=== PATIENT | male | born 1970 | race Caucasian/White ===

== ENCOUNTER 2017-07-15 12:50 | Emergency (ER) | payer BC, OTHER ==
[2017-07-15 12:54] VITALS: BMI 26.9
--- NOTE | 2017-07-15 14:24 | PDOC ---
History of Present Illness - General Chief Complaint: Nausea/Vomiting Stated Complaint: VOMITNG Time Seen by Provider: 07/15/17 14:24 - History of Present Illness Initial Comments: 07/15/17 14:24 Mr. Berg is a 46 yo male with a significant past medical history of IDDM and CAD who presents to the emergency department with a 10 hour history of hourly nausea and vomiting. He reports that he ate meat for the first time in 2 weeks last night at a neighbor's house (beef stew) and thinks this may have been the cause. He is also reporting a current migraine, and says that he has had 4 bowel movements today but that they have been regular stool. The patient denies chest pain, shortness of breath, and dizziness. Denies fever , chills, diarrhea and constipation. Denies dysuria, frequency, urgency and hematuria. Allergies: NKDA Past surgical history: knee and arm surgery Social history: denies PMD - Dr. Rose Past History - Past Medical History Allergies/Adverse Reactions: Allergies Allergy/AdvReac Type Severity Reaction Status Date / Time No Known Drug Allergies Allergy Verified 07/15/17 12:54 Home Medications: Ambulatory Orders Insulin (Novolog) [Novolog Flexpen -] 0 units SQ UTDICT 06/08/13 Insulin (Levemir) [Levemir Flexpen -] 70 units SQ HS 03/13/15 Aspirin Coated [Ecotrin -] 81 mg PO DAILY #30 tablet.ec 03/15/15 Atorvastatin Ca [Lipitor] 20 mg PO HS 03/11/16 Enalapril Maleate [Vasotec -] 2.5 mg PO DAILY 03/11/16 Metformin HCl [Metformin HCl ER] 500 mg PO BID 03/11/16 Sitagliptin Phosphate [Januvia] 50 mg PO DAILY 03/11/16 Oxycodone HCl/Acetaminophen [Percocet 5-325 mg Tablet] 1 - 2 tab PO PRN #50 tablet MDD 8 03/12/16 Ondansetron HCl [Zofran] 4 mg PO PRN #20 tablet 07/15/17 Tramadol HCl/Acetaminophen [Tramadol-Acetaminophn 37.5-325] 1 each PO Q6H Anemia: No Asthma: No Cancer: No Cardiac Disorders: Yes (CAD) CVA: No COPD: No CHF: No Dementia: No Diabetes: Yes GI Disorders: No Disorders: No HTN: No Hypercholesterolemia: No Liver Disease: No Seizures: No Thyroid Disease: No - Surgical History Abdominal Surgery: No Appendectomy: No Cardiac Surgery: No Cholecystectomy: No Lung Surgery: No Neurologic Surgery: No Orthopedic Surgery: Yes (L. Elbow, L. Miniscus tear) - Immunization History Td Vaccination: Yes Immunization Up to Date: Yes - Suicide/Smoking/Psychosocial Hx Smoking Status: No Smoking History: Never smoked Years of Tobacco Use: 0 Have you smoked in the past 12 months: No Number of Cigarettes Smoked Daily: 0 Cigars Per Day: 0 Hx Alcohol Use: Yes (SOCVIL) Drug/Substance Use Hx: No Substance Use Type: None Hx Substance Use Treatment: No Review of Systems - Review of Systems Comments:: 07/15/17 14:24 GENERAL/CONSTITUTIONAL: No fever or chills. No weakness. HEAD, EYES, EARS, NOSE AND THROAT: No change in vision. No ear pain or discharge. No sore throat. CARDIOVASCULAR: No chest pain or shortness of breath RESPIRATORY: No cough, wheezing, or hemoptysis. GASTROINTESTINAL: +Many episodes of nausea with vomiting, No diarrhea or constipation but multiple normal stools (4x) GENITOURINARY: No dysuria, frequency, or change in urination. MUSCULOSKELETAL: No joint or muscle swelling or pain. No neck or back pain. SKIN: No rash NEUROLOGIC: +Current migraine, no vertigo, loss of consciousness, or change in strength/sensation. ENDOCRINE: No increased thirst. No abnormal weight change HEMATOLOGIC/LYMPHATIC: No anemia, easy bleeding, or history of blood clots. ALLERGIC/IMMUNOLOGIC: No hives or skin allergy. *Physical Exam - Vital Signs Last Vital Signs Temp Pulse Resp BP Pulse Ox 99.4 F 102 H 20 133/71 97 07/15/17 12:51 07/15/17 12:51 07/15/17 12:51 07/15/17 12:51 07/15/17 12:51 - Physical Exam Comments: 07/15/17 14:24 GENERAL: Awake, alert, and fully oriented, in no acute distress HEAD: No signs of trauma, normocephalic, atraumatic EYES: PERRLA, EOMI, sclera anicteric, conjunctiva clear ENT: Auricles normal inspection, hearing grossly normal, nares patent, oropharynx clear without exudates. Moist mucosa NECK: Normal ROM, supple, no lymphadenopathy, JVD, or masses LUNGS: No distress, speaks full sentences, clear to auscultation bilaterally HEART: Regular rate and rhythm, normal S1 and S2, no murmurs, rubs or gallops, peripheral pulses normal and equal bilaterally. ABDOMEN: +Diffusely mildly tender to palpation, Soft, normoactive bowel sounds. No guarding, no rebound. No masses EXTREMITIES: Normal inspection, Normal range of motion, no edema. No clubbing or cyanosis. NEUROLOGICAL: Cranial nerves II through XII grossly intact. Normal speech, normal gait, no focal sensorimotor deficits SKIN: Warm, Dry, normal turgor, no rashes or lesions noted. ED Treatment Course - LABORATORY CBC & Chemistry Diagram: 07/15/17 14:55 07/15/17 14:55 Medical Decision Making - Medical Decision Making 07/15/17 18:13 Mr. Berg presents with several hours of vomiting with increased bowel movements. WBC slightly elevated but labs grossly normal. No elevated troponin or grossly elevated glucose, lipase / lactate wnl. Laboratory Results - last 24 hr 07/15/17 07/15/17 07/15/17 14:55 14:55 15:00 WBC 10.6 H D RBC 5.17 Hgb 15.1 D Hct 44.6 MCV 86.4 MCH 29.3 MCHC 33.9 RDW 13.0 Plt Count 187 MPV 8.9 Neutrophils % 86.7 H D Lymphocytes % 7.6 L D Monocytes % 4.5 Eosinophils % 0.9 D Basophils % 0.3 Sodium 135 L Potassium 4.2 Chloride 101 Carbon Dioxide 27 Anion Gap 7 L BUN 20 H D Creatinine 0.9 D Creat Clearance w eGFR > 60 Random Glucose 127 H D Lactic Acid 1.2 Calcium 8.8 Total Bilirubin 0.5 D AST 23 D ALT 37 D Alkaline Phosphatase 64 D Troponin I Total Protein 7.5 D Albumin 4.2 D Lipase 86 07/15/17 17:07 WBC RBC Hgb Hct MCV MCH MCHC RDW Plt Count MPV Neutrophils % Lymphocytes % Monocytes % Eosinophils % Basophils % Sodium Potassium Chloride Carbon Dioxide Anion Gap BUN Creatinine Creat Clearance w eGFR Random Glucose Lactic Acid Calcium Total Bilirubin AST ALT Alkaline Phosphatase Troponin I < 0.02 Total Protein Albumin Lipase *DC/Admit/Observation/Transfer Diagnosis at time of Disposition: Vomiting Qualifiers: Vomiting type: unspecified Vomiting Intractability: non-intractable Nausea presence: with nausea Qualified Code(s): R11.2 - Nausea with vomiting, unspecified; R11.2 - Nausea with vomiting, unspecified - Discharge Dispostion Disposition: HOME - Patient Instructions Printed Discharge Instructions: DI for Vomiting -- Adult
[2017-07-15] MEDS ORDERED: ONDANSETRON 4 MG/2 ML VIAL IVPUSH ONE (14:37)
[2017-07-15] MEDS ORDERED: SODIUM CHLORIDE 1,000 ML IV STA (14:37)
[2017-07-15] MEDS ORDERED: ONDANSETRON 4 MG/2 ML VIAL ONE (14:44)
--- NOTE | 2017-07-15 14:58 | PDOC ---
Attending Attestation - Resident Resident Name: [place] - ED Attending Attestation I have performed the following: I have examined & evaluated the patient, The case was reviewed & discussed with the resident, I agree w/resident's findings & plan, Exceptions are as noted - HPI HPI: 07/15/17 14:53 46yo M hx IDDM, CAD p/w vomiting since this AM, NBNB yellow in color approx 10 times today. Also reports diffuse abd pain. No fevers, chills. Ate beef stew last night but others who at the same food are not sick. Reports his FS have been under control. FS here 128. Denies focal weakness, headache, CP, SOB, dysuria, LE edema. Denies sick contacts - Physicial Exam PE: 07/15/17 15:25 GENERAL: Awake, alert, and fully oriented, in no acute distress HEAD: No signs of trauma EYES: PERRLA, EOMI, sclera anicteric, conjunctiva clear ENT: Auricles normal inspection, hearing grossly normal, nares patent, oropharynx clear without exudates. slight dry MM NECK: Normal ROM, supple, no lymphadenopathy, JVD, or masses LUNGS: Breath sounds equal, clear to auscultation bilaterally. No wheezes, and no crackles HEART: Regular rate and rhythm, normal S1 and S2, no murmurs, rubs or gallops ABDOMEN: Soft, mild tenderness to deep palpation of epigastric area, normoactive bowel sounds. No guarding, no rebound. No masses EXTREMITIES: Normal range of motion, no edema. No clubbing or cyanosis. No cords, erythema, or tenderness NEUROLOGICAL: Normal speech, cranial nerves intact, negative pronator drift, 5/ 5 strength in all 4 extremities, normal sensation to light touch in all 4 extremities, normal cerebellar exam, normal gait, normal reflexes and tone SKIN: Warm, Dry, normal turgor, no rashes or lesions noted. - Medical Decision Making 07/15/17 15:26 46-year-old male history of insulin-dependent diabetes, non obstructive CAD presents with vomiting since this morning. Vitals unremarkable. Exam with mild tenderness to palpation in the epigastric area. Fingerstick is 128. Differential includes but is not limited to gastroenteritis versus pancreatitis versus gastritis. Given hx non-obstructive CAD, will check a trop (sxs started 9 +hrs ago) and EKG. Plan -labs -UA -EKG -antiemetics -rpt abd exam -reassess 07/15/17 17:36 EKG: NSR, normal axis and intervals, TWI III and avf, with no change compared to EKG from 03/14/15 Trop is pending, remainder of labs unremarkable. pt feels better with IVF. Will PO challenge and f/u on trop.
[2017-07-15 14:59] LABS: BASOPHIL 0.3 % (0-2.0); EOSINOPHIL 0.9 % (0-4.5); MCH 29.3 pg (25.7-33.7); MCHC 33.9 g/dl (32.0-35.9); MEAN CELL VOLUME 86.4 fl (80-96); MEAN PLT VOLUME 8.9 fl (7.5-11.1); NEUTROPHILS 86.7 % (42.8-82.8); PLATELET COUNT 187 K/MM3 (134-434); WHITE BLOOD COUNT 10.6 K/mm3 (4.0-10.0)
[2017-07-15] MEDS ORDERED: ACETAMINOPHEN 1000 MG/100 ML VIAL (NON FORMULARY) IVPB ONE (15:13)
[2017-07-15] MEDS ORDERED: ACETAMINOPHEN INJECTION 100 ML IVPB ONE (15:16)
[2017-07-15 15:31] LABS: ALBUMIN 4.2 g/dl (3.4-5.0); ALK PHOS 64 U/L (45-117); ANION GAP 7 (8-16); BILIRUBIN,TOTAL 0.5 mg/dL (0.2-1.0); CALCIUM 8.8 mg/dL (8.5-10.1); CO2 27 mmol/L (21-32); CREATININE 0.9 mg/dL (0.7-1.3); GLUCOSE,RANDOM 127 mg/dL (74-106); SGOT/AST 23 U/L (15-37); SGPT/ALT 37 U/L (12-78); TOT PROT 7.5 g/dl (6.4-8.2)
[2017-07-15 18:33] VITALS: BP 131/68; PULSE 95; TEMP 97.6
--- NOTE | 2017-07-16 14:17 | EKG ---
Test Reason : Blood Pressure : / mmHG Vent. Rate : 094 BPM Atrial Rate : 094 BPM P-R Int : 142 ms QRS Dur : 082 ms QT Int : 326 ms P-R-T Axes : 049 018 -09 degrees QTc Int : 407 ms NORMAL SINUS RHYTHM NORMAL ECG WHEN COMPARED WITH ECG OF 14-MAR-2015 14:00, NO SIGNIFICANT CHANGE WAS FOUND Confirmed by DARVIN GLASER MD ([id number]) on 07/16/2017 2:17:19 PM Referred By: Confirmed By:DARVIN GLASER MD
== END 2017-07-15 18:33 | disposition home or self-care (01) ==
LOC: JER 12:50
PROC: 3E033NZ Introduction of Analgesics, Hypnotics, Sedatives into Peripheral Vein, Percutaneous Approach (ICD-10-PCS; principal; 2017-07-15)
PROC: 3E033GC Introduction of Other Therapeutic Substance into Peripheral Vein, Percutaneous Approach (ICD-10-PCS; 2017-07-15)
DX: R11.2 Nausea with vomiting, unspecified (principal); G43.909 Migraine, unspecified, not intractable, without status migrainosus
CPT/HCPCS: 36415; 80053; 83605; 83690; 84484; 85025; 93005; 93010; 99283-25

== ENCOUNTER 2018-12-31 05:23 | Day surgery (SDC) | payer BC, OTHER ==
[2018-12-30 12:36] VITALS: BMI 27.4
[2018-12-31] MEDS ORDERED: MIDAZOLAM HCL 2 MG/2 ML SINGLE DOSE VIAL ONE ×2 (08:05)
--- NOTE | 2018-12-31 08:16 | HP ---
Satellite H - Chief Complaint Chief Complaint: right shoulder pain - Past Medical History Allergies/Adverse Reactions: Allergies Allergy/AdvReac Type Severity Reaction Status Date / Time No Known Drug Allergies Allergy Verified 12/31/18 07:41 Cardiovascular: Yes: Hyperlipdemia Endocrine: Yes: Diabetes Mellitus - Current Medications Current Medications: Home Medications Medication Instructions Recorded Insulin (Novolog) [Novolog Flexpen 0 units SQ UTDICT 06/08/13 -] Insulin (Levemir) [Levemir Flexpen 70 units SQ HS 03/13/15 -] Atorvastatin Ca [Lipitor] 20 mg PO HS 03/11/16 Enalapril Maleate [Vasotec -] 2.5 mg PO DAILY 03/11/16 Sitagliptin Phosphate [Januvia] 50 mg PO DAILY 03/11/16 metFORMIN HCL [Metformin ER 500 mg PO BID 03/11/16 Osmotic] Insulin Pump Controller [Omnipod 1 each MC ASDIR 12/30/18 Dash Pdm Kit] Oxycodone HCl/Acetaminophen 1 - 2 tab PO Q6H #50 tab MDD 8 12/31/18 [Percocet 5-325 mg Tablet -] Satellite Physical Exam - Physical Examination Vital Signs: Vital Signs Period Temp Pulse Resp BP Sys/Bernal Pulse Ox Last 24 Hr 98.6 F 68 20 122/71 96 General Appearance: Well Nourished, Well Developed, Alert & Oriented x3 ENT: Clear Lung: Normal air movement Heart: Regular rate & rhythm Extremities: Other (right shoulder- + ttp, decr rom, + neer, + chen, + empty can, nvi MRI + rct) Neurological: Intact, Alert, Oriented Satellite Impression/Plan - Impression/Plan Impression: right shoulder rct Operative Procedure: right shoulder arthroscopy with RCR, SAD Date to be Performed: 12/31/18
[2018-12-31] MEDS ORDERED: PROPOFOL 20 ML ONE ×3 (08:43→09:41)
[2018-12-31] MEDS ORDERED: ceFAZolin SODIUM 1 GM VIAL IVPB ONE (08:56)
[2018-12-31] MEDS ORDERED: oxyCODONE HCL 5 MG TABLET PO PRN (09:04)
[2018-12-31] MEDS ORDERED: ONDANSETRON 4 MG/2 ML VIAL IVPUSH PRN (09:04)
[2018-12-31] MEDS ORDERED: LIDOCAINE HCL/PF 2% SDV 5ML VIAL ONE (09:13)
[2018-12-31] MEDS ORDERED: LACTATED RINGERS SOLUTION 1,000 ML IV SCH (09:15)
--- NOTE | 2018-12-31 09:52 | OP ---
Operative Note - Note: Operative Date: 12/31/18 ([facility]) Pre-Operative Diagnosis: right shoulder rct Operation: right shoulder arthroscopy with RCR, SAD Implants: arthrex speedbridge Post-Operative Diagnosis: Same as Pre-op Surgeon: Rik Albarran Insulation Worker: Buddy Dailey Anesthesiologist/BULLDOZER/LOADER/COMPACTOR/SCRAPER: Darin Weinberg Anesthesia: Local, MAC Specimens Removed: shavings Estimated Blood Loss (mls): 10 Operative Report Dictated: Yes
[2018-12-31 11:57] VITALS: TEMP 97.8
--- NOTE | 2018-12-31 12:03 | SPEC ---
DATE OF OPERATION: 12/31/2018 PREOPERATIVE DIAGNOSIS: Right rotator cuff tear. POSTOPERATIVE DIAGNOSIS: Right rotator cuff tear. PROCEDURE: Right shoulder arthroscopy, debridement and decompression, and arthroscopic rotator cuff repair. SURGICAL ATTENDING: Rik Albarran MD EMPLOYEE BENEFITS DIRECTOR: ANANDA Poon ANESTHESIA: Regional and sedation. CLOSURE: A SpeedBridge for rotator cuff and 3-0 nylon for skin. ESTIMATED BLOOD LOSS: Negligible. COMPLICATIONS: None. CONDITION: To the recovery room in stable condition. DESCRIPTION OF PROCEDURE: The patient was taken to the operating room on December 31, 2018. General and regional anesthesia was administered by the anesthesiologist. IV Kefzol was administered prophylactically prior to the case. The patient was placed in the beach chair position with all prominences well padded. The right shoulder area was prepped and draped in the usual sterile fashion. First, a diagnostic arthroscopy of the glenohumeral joint was made. Posterior portal was made 2 fingerbreadths below the acromion with a 15 blade followed by a blunt trocar. Circumferential exam of the glenohumeral joint revealed the following: Intact labrum circumferentially, intact glenoid and humeral head articular cartilage, intact biceps and biceps anchor, intact subscapularis through its insertion. Looking superiorly, there was a large rotator cuff tear. The fluid was drained from the shoulder, and the trocar was removed. The posterior trocar was redirected in the subacromial space. An accessory lateral and anterior portal were made with a 15 blade followed by a blunt trocar. The lateral portal was used as the working portal. Through this portal, an ArthroCare device was applied. This was used to debride the soft tissue in the subacromial aspect. The coracoacromial ligament was identified and detached off the anterior acromion and was visualized to drop inferiorly and was further debrided. The bone on the undersurface of the acromion was burred to the appropriate level giving appropriate height for the rotator cuff beneath. Looking inferiorly, there was a large rotator cuff tear, soft tissue encasing the rotator cuff, and the deltoid recess was debrided using ArthroCare device and the shaver. The bed on the greater tuberosity was burred to give a good bed for the double row SpeedBridge repair. A grasper was used to ensure that the rotator cuff was able to be reduced sufficiently to the greater tuberosity. The rotator cuff was freed on the bursal and the articular surface to allow more excursion of the tendon. Two anchors preloaded with FiberTape suture were placed on the articular margin, one more anteriorly, one more posteriorly. They were shuttled through the anterior portal with a grasper. Each limb was individually passed through the rotator cuff, two anteriorly and two posteriorly. One anterior limb and one posterior limb was delivered through the lateral portal. They were placed through the eyelet hole of the more lateral anchor, which was then malleted into place much more laterally, reducing the rotator cuff to the greater tuberosity. The swivel was then screwed into place. The sutures were then cut flush with the bone. Next, one anterior and one posterior limb that was remaining were shuttled from the anterior to the lateral portal. The sutures were placed through the eyelet hole of the anterior anchor, which was malleted on the anterior aspect of the greater tuberosity. After tensioning it, it was deployed the entire way and then screwed home giving an excellent reduction to the anterior portion of the rotator cuff. After the sutures were cut, the rotator cuff was probed and found to have good stability with excellent matting down of the rotator cuff to the greater tuberosity. The shoulder was taken through the range of motion and found to have good clearance on the undersurface of the acromion with good, solid repair. The shoulder was drained of the fluid. The portals were closed with 3-0 nylon suture. A sterile pressure dressing followed by a shoulder immobilizer was applied. The patient was awoken from anesthesia and transferred to recovery room in stable condition. No complications. Estimated blood loss negligible. Azul [id number]
[2018-12-31 15:45] VITALS: PULSE 78
[2018-12-31 15:50] VITALS: BP 116/78
--- NOTE | 2019-01-03 14:50 | PATH ---
Surgical Pathology Report Patient Name: ARMANI SANCHES Med. Rec. #: [id number] /Age/Gender: 1970 (Age: 48) / M Account: [id number] Location: [facility] SURGICAL Taken: 12/31/2018 Received: 12/31/2018 Reported: 01/03/2019 Physicians: Rik Albarran M.D. Specimen(s) Received RIGHT SHOULDER SHAVINGS Clinical History Right shoulder tear Final Diagnosis SHOULDER SHAVINGS, RIGHT, ARTHROSCOPY: FRAGMENTS OF BENIGN CARTILAGE, DENSE FIBROCONNECTIVE TISSUE, ADIPOSE TISSUE, AND SKELETAL MUSCLE. Electronically Signed Meri Cummings M.D. Gross Description Received in formalin, labeled "right shoulder shavings," is a 3.2 x 3.0 x 0.4 cm. aggregate of mooney-yellow soft tissue fragments. A outside sales representative portion is submitted in one cassette. /12/31/2018 saudi12/31/2018
== END 2018-12-31 13:15 | disposition home or self-care (01) ==
LOC: JASU-SURG 05:23
PROVIDERS: ATTEND Orthopaedic Surgery
PROC: 0LQ14ZZ Repair Right Shoulder Tendon, Percutaneous Endoscopic Approach (ICD-10-PCS; principal; 2018-12-31 08:30)
PROC: 0RNJ4ZZ Release Right Shoulder Joint, Percutaneous Endoscopic Approach (ICD-10-PCS; 2018-12-31 08:30)
DX: M75.101 Unspecified rotator cuff tear or rupture of right shoulder, not specified as traumatic (principal)
CPT/HCPCS: 82962; 88304-TC; 94760

== ENCOUNTER 2019-01-01 01:10 | Emergency (ER) | payer BC ==
--- NOTE | 2019-01-01 01:20 | PDOC ---
History of Present Illness - General Chief Complaint: Pain, Acute Stated Complaint: POST OP PAIN Time Seen by Provider: 01/01/19 01:20 - History of Present Illness Initial Comments: This 48-year-old man with a history of IDDM/HTN/HLD had right shoulder rotator cuff tear repaired by Dr. Albarran yesterday (12/31) a.m.; procedure was performed with regional nerve block. He was discharged at approximately 2 PM. Several hours later, he took first Percocet 5/325 tablet. Over the next 6 hours, he had progressively more severe pain in the right shoulder. He denies any trauma to the area. He has no radiation of pain into the lower portion of his arm or hand. He denies paresthesias/numbness of the right arm. He states that he took a total of 3 Percocet 5/325 tablets over 2-3 hours prior to presentation here. Patient states that he has had several orthopedic procedures previously including knee surgery/elbow surgery/carpal tunnel release surgery. He states that this pain is much more severe than after any of those procedures. Past History - Past Medical History Allergies/Adverse Reactions: Allergies Allergy/AdvReac Type Severity Reaction Status Date / Time No Known Drug Allergies Allergy Verified 12/31/18 07:41 Home Medications: Ambulatory Orders Insulin (Novolog) [Novolog Flexpen -] 0 units SQ UTDICT 06/08/13 Insulin (Levemir) [Levemir Flexpen -] 70 units SQ HS 03/13/15 Atorvastatin Ca [Lipitor] 20 mg PO HS 03/11/16 Enalapril Maleate [Vasotec -] 2.5 mg PO DAILY 03/11/16 Sitagliptin Phosphate [Januvia] 50 mg PO DAILY 03/11/16 metFORMIN HCL [Metformin ER Osmotic] 500 mg PO BID 03/11/16 Insulin Pump Controller [Omnipod Dash Pdm Kit] 1 each MC ASDIR 12/30/18 Oxycodone HCl/Acetaminophen [Percocet 5-325 mg Tablet -] 1 - 2 tab PO Q6H #50 tab MDD 8 12/31/18 Oxycodone HCl 10 mg PO TID PRN #12 tablet MDD 3 tabs 01/01/19 Anemia: No Asthma: No Cancer: No Cardiac Disorders: Yes (CAD) CVA: No COPD: No CHF: No Dementia: No Diabetes: Yes GI Disorders: No Disorders: No HTN: Yes Hypercholesterolemia: Yes Liver Disease: No Seizures: No Thyroid Disease: No - Surgical History Abdominal Surgery: No Appendectomy: No Cardiac Surgery: No Cholecystectomy: No Lung Surgery: No Neurologic Surgery: No Orthopedic Surgery: Yes (L. Elbow, L. Miniscus tear) - Immunization History Td Vaccination: Yes Immunization Up to Date: Yes - Suicide/Smoking/Psychosocial Hx Smoking Status: No Smoking History: Never smoked Years of Tobacco Use: 0 Have you smoked in the past 12 months: No Number of Cigarettes Smoked Daily: 0 Cigars Per Day: 0 Hx Alcohol Use: Yes (SOCIAL) Drug/Substance Use Hx: No Substance Use Type: Alcohol Hx Substance Use Treatment: No Review of Systems - Review of Systems Able to Perform ROS?: Yes Comments:: 12 point review of systems is negative except for what is noted in the history of present illness *Physical Exam - Physical Exam Comments: GENERAL: Adult male, in moderate distress secondary to right shoulder pain HEAD: Normal with no signs of trauma. LUNGS: Breath sounds equal, clear to auscultation bilaterally. No wheezes, and no crackles. EXTREMITIES: Right shoulder-elastic Band-Aids over small incisions anteriorly and posteriorly intact without edema/erythema No deformity/significant tenderness/edema noted of the shoulder. Remainder of the right upper extremities normal without evidence of edema/motor or sensory deficits; forearm soft and nontender Right hand is warm and dry with briskly palpable radial pulse at the wrist Remainder the extremity exam is normal NEUROLOGICAL: Cranial nerves II through XII grossly intact. Normal speech. No focal neurological deficits. MUSCULOSKELETAL: Back non-tender to palpation, no CVA tenderness SKIN: Warm, Dry, normal turgor, no rashes or lesions noted. Progress Note - Progress Note Progress Note: This patient, less than 24 hours after right rotator cuff repair, presents with severe postoperative pain. Assessment of the area and the distal arm reveals no evidence of neurovascular deficit or evidence of infection in the pierced site. Patient received 2 separate doses of Dilaudid 1 mg IM. After the second dose of Dilantin 1 mg IM, although patient had some residual pain, he had enough relief that he could go home. A small (#12) prescription for oxycodone 10 mg up to 3 times a day was sent to patient's pharmacy. This was prescribed because patient states that at this point, he needed to take 3-4 Percocet 5/325 for any relief of his pain. Since the patient would have near toxic doses of acetaminophen if he took 3-4 tablets of Percocet 5/325 4 times a day as prescribed, plain oxycodone 10 mg was prescribed. The patient should not take the Percocet while he is taking plain oxycodone. Patient should call Dr. Albarran service tomorrow to inform them of the ER visit *DC/Admit/Observation/Transfer Diagnosis at time of Disposition: Post-operative pain - Discharge Dispostion Disposition: HOME Condition at time of disposition: Stable - Prescriptions Prescriptions: Oxycodone HCl 10 mg PO TID PRN #12 tablet MDD 3 tabs PRN Reason: Severe Pain - Referrals - Patient Instructions Printed Discharge Instructions: DI for Postoperative Pain Additional Instructions: Oxycodone 10mg 3 X a day as needed for pain Dont take Percocet 5/325 until Oxycodone prescription completed Drink plenty of water and eat a high-fiber diet Continue all other meds as prescribed Contact Dr Albarran's service tomorrow as discussed Return to ER if pain is persistently severe - Post Discharge Activity
[2019-01-01 01:25] VITALS: BP 186/114; PULSE 74; TEMP 97.7; BMI 27.4
[2019-01-01] MEDS ORDERED: HYDROmorphone HCL CARPU-JECT 1 MG/1 ML DISP.SYRIN IM ONE ×2 (01:27→02:23)
[2019-01-01] MEDS ORDERED: HYDROmorphone HCL CARPU-JECT 1 MG/1 ML DISP.SYRIN ONE ×2 (01:29→02:32)
== END 2019-01-01 03:40 | disposition home or self-care (01) ==
LOC: FER 01:10
PROC: 3E023NZ Introduction of Analgesics, Hypnotics, Sedatives into Muscle, Percutaneous Approach (ICD-10-PCS; principal; 2019-01-01)
PROC: 3E023NZ Introduction of Analgesics, Hypnotics, Sedatives into Muscle, Percutaneous Approach (ICD-10-PCS; 2019-01-01)
DX: G89.18 Other acute postprocedural pain (principal); I10 Essential (primary) hypertension; E11.9 Type 2 diabetes mellitus without complications; I25.10 Atherosclerotic heart disease of native coronary artery without angina pectoris; E78.00 Pure hypercholesterolemia, unspecified; Z79.4 Long term (current) use of insulin
CPT/HCPCS: 99282-25

== ENCOUNTER 2019-12-22 18:47 | Inpatient (IN) | payer BC, OTHER ==
[2019-12-22] MEDS ORDERED: CLINDAMYCIN 900 MG PREMIX IVPB 900 MG/50 ML BAG IVPB ONE (19:37)
[2019-12-22] MEDS ORDERED: CLINDAMYCIN PHOSPHATE 600 MG/4 ML VIAL ONE (19:49)
[2019-12-22] MEDS ORDERED: CLINDAMYCIN PHOSPHATE 300 MG/2 ML VIAL ONE (19:49)
--- NOTE | 2019-12-22 20:16 | PDOC ---
Documentation entered by Karon De Jesus SCRIBE, acting as scribe for Lynn Murray MD. Lynn Murray MD: This documentation has been prepared by the berkleyibe, Karon De Jesus SCRIBE, under my direction and personally reviewed by me in its entirety. I confirm that the documentation accurately reflects all work, treatment, procedures, and medical decision making performed by me. History of Present Illness - General Chief Complaint: Redness To Affected Area Stated Complaint: LEFT LEG, LEFT FOOT PAIN, REDNESS History Source: Patient Exam Limitations: No Limitations - History of Present Illness Initial Comments: 12/22/19 19:44 Patient is a 49 year old male with a significant medical history of DM,HLd HTN who presents to the ED with pain in the left foot for the past 2-3 days. Patient reports the pain in his left foot radiates up his left leg. Patient also reports a cough that he has had for a couple of days. has had swelling and redness. no f/c no injury that he recalls. also c/o cough nonproductive. no exposure to COVID 19 or flu. no f/c no sore throat. no n/v Patient denies fever, chills, nausea, any contact with any sick contacts. 12/22/19 20:06 12/22/19 20:19 Past History - Past Medical History Allergies/Adverse Reactions: Allergies Allergy/AdvReac Type Severity Reaction Status Date / Time No Known Drug Allergies Allergy Verified 12/22/19 18:49 Home Medications: Ambulatory Orders Atorvastatin Ca [Lipitor] 20 mg PO DAILY 12/22/19 Enalapril Maleate 2.5 mg PO DAILY 12/22/19 Insulin Detemir [Levemir Flextouch] 70 unit SQ HS 12/22/19 Insulin Lispro [Humalog] 0 unit SQ ASDIR 12/22/19 Metformin HCl [Glucophage] 500 mg PO BID 12/22/19 Sitagliptin Phosphate [Januvia] 50 mg PO DAILY 12/22/19 Anemia: No Asthma: No Cancer: No Cardiac Disorders: Yes (CAD) CVA: No COPD: No CHF: No Dementia: No Diabetes: Yes GI Disorders: No Disorders: No HTN: Yes Hypercholesterolemia: Yes Liver Disease: No Seizures: No Thyroid Disease: No - Surgical History Abdominal Surgery: No Appendectomy: No Cardiac Surgery: No Cholecystectomy: No Lung Surgery: No Neurologic Surgery: No Orthopedic Surgery: Yes (L. Elbow, L. Miniscus tear) - Immunization History Td Vaccination: Yes Immunization Up to Date: Yes - Psycho Social/Smoking Cessation Hx Smoking Status: No Smoking History: Never smoked Years of Tobacco Use: 0 Have you smoked in the past 12 months: No Number of Cigarettes Smoked Daily: 0 Cigars Per Day: 0 Hx Alcohol Use: Yes (SOCIAL) Drug/Substance Use Hx: No Substance Use Type: Alcohol Hx Substance Use Treatment: No Review of Systems - Review of Systems Constitutional: No: Chills, Diaphoresis HEENTM: No: Eye Pain, Blurred Vision Respiratory: Yes: Cough Cardiac (ROS): No: Chest Pain, Edema, Irregular Heart Rate ABD/GI: No: Abdominal Distended Musculoskeletal: Yes: Other (foot pain) Integumentary: Yes: Erythema Neurological: No: Headache, Numbness Psychiatric: No: Frequent Crying, Stressors Hematologic/Lymphatic: No: Anemia, Blood Clots All Other Systems: Reviewed and Negative *Physical Exam - Physical Exam 12/22/19 20:13 awake alert lungs clear bilat heart rrr no mrg abd soft nt nd ext wwp. left foot with erythema warmth. no criputusl. between fifth and fourth toe, visible draining wound with purulent discharge. 2 + dp/ pt pulses Medical Decision Making - Medical Decision Making 12/22/19 20:15 49 yo m h/o diabetes here with c/o left foot redmess pain. cellulitis and draining wound on exam. plan iv antiobtiocs admit. soaks to foot to encourage draining wound. Discharge - Discharge Information Problems reviewed: Yes Clinical Impression/Diagnosis: Cellulitis of foot, Abscess, Diabetes Condition: Stable - Admission Yes - Follow up/Referral Referrals: Tony Rose MD [Primary Care Provider] - - Patient Discharge Instructions - Post Discharge Activity
[2019-12-22] MEDS ORDERED: VANCOMYCIN 1 GM in D5W (PRE-DOCKED) 1,000 MG/250 ML IVPB ONE (21:28)
[2019-12-22 21:29] LABS: BASO % 0.6 % (0-2.0); EOS % 4.1 % (0-4.5); HEMATOCRIT 44.5 % (35.4-49); HEMOGLOBIN 14.8 GM/dl (11.7-16.9); LYMPH % 23.7 % (8-40); MCH 29.4 pg (25.7-33.7); MCHC 33.3 g/dl (32.0-35.9); MEAN CELL VOLUME 88.2 fl (80-96); MEAN PLT VOLUME 9.8 fl (7.5-11.1); MONO % 6.4 % (3.8-10.2); NEUT % 65.2 % (42.8-82.8); PLATELET COUNT 242 K/MM3 (134-434); RBC 5.04 M/mm3 (4.00-5.60); RDW 12.5 % (11.9-15.9); WHITE BLOOD COUNT 10.1 K/mm3 (4.0-10.8)
[2019-12-22] MEDS ORDERED: PIPERACILLIN/TAZOB 3.375 GM 3.375 GM in DEXTROSE 5%-WATER - 50 ML IVPB ONE (21:29)
[2019-12-22] MEDS ORDERED: VANCOMYCIN 1,000 MG VIAL (RESTRICTED TO ID ONLY) ONE (21:31)
[2019-12-22] MEDS ORDERED: PIPERACILLIN/TAZOBACTAM 3.375 GM VIAL IVPB ONE (21:31)
[2019-12-22 21:52] LABS: ALBUMIN 4.3 g/dl (3.4-5.0); BILIRUBIN,TOTAL 0.9 mg/dl (0.2-1); CALCIUM 9.4 mg/dl (8.5-10); CREATININE 0.9 mg/dl (0.55-1.3); POTASSIUM 4.1 mmol/L (3.5-5.1); TOT PROT 7.2 g/dl (6.4-8.2)
[2019-12-22] MEDS ORDERED: INSULIN (LEVEMIR) 100 UNITS/ML UNITS SQ SCH (22:00)
[2019-12-22] MEDS: ENOXAPARIN NA (PORCINE) 40 MG/0.4 ML DISP.SYRIN SQ SCH (23:47)
[2019-12-23 04:06] VITALS: BMI 27.9
[2019-12-23 08:01] LABS: CALCIUM 8.5 mg/dl (8.5-10); CREATININE 0.9 mg/dl (0.55-1.3); POTASSIUM 4.9 mmol/L (3.5-5.1)
[2019-12-23 08:18] LABS: HEMATOCRIT 42.5 % (35.4-49); HEMOGLOBIN 14.4 GM/dl (11.7-16.9); MCH 29.9 pg (25.7-33.7); MCHC 33.7 g/dl (32.0-35.9); MEAN CELL VOLUME 88.8 fl (80-96); MEAN PLT VOLUME 9.4 fl (7.5-11.1); PLATELET COUNT 215 K/MM3 (134-434); RBC 4.79 M/mm3 (4.00-5.60); RDW 12.3 % (11.9-15.9); WHITE BLOOD COUNT 7.6 K/mm3 (4.0-10.8)
[2019-12-23 09:42] VITALS: BP 121/63; PULSE 86; TEMP 97.9
[2019-12-23] MEDS: ENOXAPARIN NA (PORCINE) 40 MG/0.4 ML DISP.SYRIN SQ SCH (09:50)
[2019-12-23] MEDS ORDERED: sitaGLIPtin PHOSPHATE 50 MG TABLET PO ONE (10:00)
[2019-12-23] MEDS ORDERED: ENALAPRIL MALEATE 2.5 MG TABLET (FP) PO ONE (10:00)
[2019-12-23] MEDS ORDERED: metFORMIN HCL 500 MG TABLET (FP) PO SCH (10:00)
[2019-12-23] MEDS: INSULIN SLIDING SCALE (NOVOLOG) 1 VIAL SQ SCH ×2 (10:53→10:54)
--- NOTE | 2019-12-23 10:57 | HP ---
CHIEF COMPLAINT: Left foot/toe pain PCP: Enrrique HISTORY OF PRESENT ILLNESS: Patient is a 49-year old male with a significant PMH Of HTN, HLD, and Type II IDDM, who presented to the ED with pain in the left foot for the past 2-3 days. Patient reports the pain in his left foot radiates up his left leg. Patient also reports a cough that he has had for a couple of days. No exposure to COVID 19 or flu. No fever, sweats, chills. Recent Travel: No PAST MEDICAL HISTORY: Hypertension Hyperlipidemia Type II IDDM PAST SURGICAL HISTORY: Right shoulder arthroscopy Social History: lives with Smoking: never Alcohol: no Drugs: no Allergies No Known Drug Allergies Allergy (Verified 12/22/19 18:49) HOME MEDICATIONS: Home Medications Medication Instructions Recorded Atorvastatin Ca [Lipitor] 20 mg PO DAILY 12/22/19 Enalapril Maleate 2.5 mg PO DAILY 12/22/19 Insulin Detemir [Levemir Flextouch] 70 unit SQ HS 12/22/19 Insulin Lispro [Humalog] 0 unit SQ ASDIR 12/22/19 Metformin HCl [Glucophage] 500 mg PO BID 12/22/19 Sitagliptin Phosphate [Januvia] 50 mg PO DAILY 12/22/19 REVIEW OF SYSTEMS CONSTITUTIONAL: Absent: fever, chills, diaphoresis, generalized weakness, malaise, loss of appetite, weight change HEENT: Absent: rhinorrhea, nasal congestion, throat pain, throat swelling, difficulty swallowing, mouth swelling, ear pain, eye pain, visual changes CARDIOVASCULAR: Absent: chest pain, syncope, palpitations, irregular heart rate, lightheadedness, peripheral edema RESPIRATORY: Absent: cough, shortness of breath, dyspnea with exertion, orthopnea, wheezing, stridor, hemoptysis GASTROINTESTINAL: Absent: abdominal pain, abdominal distension, nausea, vomiting, diarrhea, constipation, melena, hematochezia GENITOURINARY: Absent: dysuria, frequency, urgency, hesitancy, hematuria, flank pain, genital pain MUSCULOSKELETAL: +left foot pain Absent: myalgia, arthralgia, joint swelling, back pain, neck pain SKIN: +left foot erythema, warmth Absent: rash, itching, pallor HEMATOLOGIC/IMMUNOLOGIC: Absent: easy bleeding, easy bruising, lymphadenopathy, frequent infections ENDOCRINE: Absent: unexplained weight gain, unexplained weight loss, heat intolerance, cold intolerance NEUROLOGIC: Absent: headache, focal weakness or paresthesias, dizziness, unsteady gait, seizure, mental status changes, bladder or bowel incontinence PSYCHIATRIC: Absent: anxiety, depression, suicidal or homicidal ideation, hallucinations. PHYSICAL EXAMINATION Vital Signs - 24 hr 12/22/19 12/22/19 12/22/19 18:47 20:16 21:00 Temperature 98.6 F 97.6 F Pulse Rate 78 79 Respiratory 18 18 18 Rate Blood Pressure 140/87 130/70 O2 Sat by Pulse 97 98 98 Oximetry (%) 12/22/19 12/23/19 23:02 09:38 Temperature 97.6 F 97.9 F Pulse Rate 79 86 Respiratory 18 17 Rate Blood Pressure 136/78 121/63 O2 Sat by Pulse 98 Oximetry (%) GENERAL: Awake, alert, and fully oriented, in no acute distress. HEAD: Normal with no signs of trauma. EYES: Pupils equal, round and reactive to light, extraocular movements intact, sclera anicteric, conjunctiva clear. No lid lag. LUNGS: Breath sounds equal, clear to auscultation bilaterally. No wheezes, and no crackles. No accessory muscle use. HEART: Regular rate and rhythm, normal S1 and S2 without murmur, rub or gallop. ABDOMEN: Soft, nontender, not distended UPPER EXTREMITIES: 2+ pulses, warm, well-perfused. No cyanosis. No clubbing. No peripheral edema. LLE: 0.5cm area of fluctuance between the 4th and 5th toes, no drainage, no erythema, no warmth, no tenderness NEUROLOGICAL: Cranial nerves II-XII intact. Normal speech. Normal gait. Laboratory Results - last 24 hr 12/22/19 12/22/19 12/22/19 19:50 19:50 22:34 WBC 10.1 RBC 5.04 Hgb 14.8 Hct 44.5 MCV 88.2 MCH 29.4 MCHC 33.3 RDW 12.5 Plt Count 242 MPV 9.8 Absolute Neuts (auto) 6.6 Neutrophils % 65.2 Lymphocytes % 23.7 Monocytes % 6.4 Eosinophils % 4.1 Basophils % 0.6 Sodium 137 Potassium 4.1 Chloride 100 Carbon Dioxide 29 Anion Gap 8 BUN 21.0 H Creatinine 0.9 Est GFR (CKD-EPI)AfAm 114.21 Est GFR (CKD-EPI)NonAf 98.54 POC Glucometer 198 Random Glucose 106 Calcium 9.4 Total Bilirubin 0.9 AST 21 ALT 29 Alkaline Phosphatase 50 Total Protein 7.2 Albumin 4.3 12/23/19 12/23/19 12/23/19 06:33 06:50 06:50 WBC 7.6 RBC 4.79 Hgb 14.4 Hct 42.5 MCV 88.8 MCH 29.9 MCHC 33.7 RDW 12.3 Plt Count 215 MPV 9.4 Absolute Neuts (auto) Neutrophils % Lymphocytes % Monocytes % Eosinophils % Basophils % Sodium 133 L Potassium 4.9 Chloride 101 Carbon Dioxide 27 Anion Gap 5 L BUN 19.0 H Creatinine 0.9 Est GFR (CKD-EPI)AfAm 114.21 Est GFR (CKD-EPI)NonAf 98.54 POC Glucometer 257 Random Glucose 223 H Calcium 8.5 Total Bilirubin AST ALT Alkaline Phosphatase Total Protein Albumin ASSESSMENT/PLAN Patient is a 49-year old male with a significant PMH Of HTN, HLD, and Type II IDDM, admitted for cellulitis. Cellulitis left foot/toes --vanc, zosyn, clinda given in ED --no erythema, no exudate seen at time of this admission --will switch to PO meds, follow up at wound center Type II NIDDM --Novolog sliding scale coverage; scale that patient follows at home entered Hypertension --BP stable --continue enalapril Hyperlipidemia --continue Lipitor Dispo: continues to require inpatient care. Full code. Visit type - Emergency Visit Emergency Visit: Yes ED Registration Date: 12/22/19 Care time: The patient presented to the Emergency Department on the above date and was hospitalized for further evaluation of their emergent condition. - New Patient This patient is new to me today: Yes Date on this admission: 12/23/19 - Critical Care Critical Care patient: No
[2019-12-23] MEDS ORDERED: INSULIN (NOVOLOG) ASPART 100 UNITS/ML 10ML VIAL SQ SCH (11:00)
--- NOTE | 2019-12-23 13:54 | DS ---
Physical Exam: SUBJECTIVE: Patient seen and examined OBJECTIVE: Vital Signs Period Temp Pulse Resp BP Sys/Bernal Pulse Ox Last 24 Hr 97.6 F-98.6 F 78-86 17-18 121-140/63-87 97-98 PHYSICAL EXAM GENERAL: Awake, alert, and fully oriented, in no acute distress. HEAD: Normal with no signs of trauma. EYES: Pupils equal, round and reactive to light, extraocular movements intact, sclera anicteric, conjunctiva clear. No lid lag. LUNGS: Breath sounds equal, clear to auscultation bilaterally. No wheezes, and no crackles. No accessory muscle use. HEART: Regular rate and rhythm, normal S1 and S2 without murmur, rub or gallop. ABDOMEN: Soft, nontender, not distended UPPER EXTREMITIES: 2+ pulses, warm, well-perfused. No cyanosis. No clubbing. No peripheral edema. LLE: 0.5cm area of fluctuance between the 4th and 5th toes, no drainage, no erythema, no warmth, no tenderness NEUROLOGICAL: Cranial nerves II-XII intact. Normal speech. Normal gait. LABS Laboratory Results - last 24 hr 12/22/19 12/22/19 12/22/19 19:50 19:50 22:34 WBC 10.1 RBC 5.04 Hgb 14.8 Hct 44.5 MCV 88.2 MCH 29.4 MCHC 33.3 RDW 12.5 Plt Count 242 MPV 9.8 Absolute Neuts (auto) 6.6 Neutrophils % 65.2 Lymphocytes % 23.7 Monocytes % 6.4 Eosinophils % 4.1 Basophils % 0.6 Sodium 137 Potassium 4.1 Chloride 100 Carbon Dioxide 29 Anion Gap 8 BUN 21.0 H Creatinine 0.9 Est GFR (CKD-EPI)AfAm 114.21 Est GFR (CKD-EPI)NonAf 98.54 POC Glucometer 198 Random Glucose 106 Calcium 9.4 Total Bilirubin 0.9 AST 21 ALT 29 Alkaline Phosphatase 50 Total Protein 7.2 Albumin 4.3 12/23/19 12/23/19 12/23/19 06:33 06:50 06:50 WBC 7.6 RBC 4.79 Hgb 14.4 Hct 42.5 MCV 88.8 MCH 29.9 MCHC 33.7 RDW 12.3 Plt Count 215 MPV 9.4 Absolute Neuts (auto) Neutrophils % Lymphocytes % Monocytes % Eosinophils % Basophils % Sodium 133 L Potassium 4.9 Chloride 101 Carbon Dioxide 27 Anion Gap 5 L BUN 19.0 H Creatinine 0.9 Est GFR (CKD-EPI)AfAm 114.21 Est GFR (CKD-EPI)NonAf 98.54 POC Glucometer 257 Random Glucose 223 H Calcium 8.5 Total Bilirubin AST ALT Alkaline Phosphatase Total Protein Albumin 12/23/19 11:53 WBC RBC Hgb Hct MCV MCH MCHC RDW Plt Count MPV Absolute Neuts (auto) Neutrophils % Lymphocytes % Monocytes % Eosinophils % Basophils % Sodium Potassium Chloride Carbon Dioxide Anion Gap BUN Creatinine Est GFR (CKD-EPI)AfAm Est GFR (CKD-EPI)NonAf POC Glucometer 236 Random Glucose Calcium Total Bilirubin AST ALT Alkaline Phosphatase Total Protein Albumin Date of Admission:12/22/19 Date of Discharge: 12/23/19 Pre hospital course Patient is a 49-year old male with a significant PMH Of HTN, HLD, and Type II IDDM, who presented to the ED with pain in the left foot for the past 2-3 days. Patient reports the pain in his left foot radiates up his left leg. Patient also reports a cough that he has had for a couple of days. No exposure to COVID 19 or flu. No fever, sweats, chills. Hospital course by problem list Cellulitis left foot/toes --vanc, zosyn, clinda given in ED --no erythema, no exudate seen at time of this admission --switched to PO clinda, discharge on same to treat for 10 days; follow up appointment made for Wound Center Type II NIDDM --Novolog sliding scale coverage; scale that patient follows at home entered Hypertension --BP stable --continue enalapril Hyperlipidemia --continue Lipitor Dispo: continues to require inpatient care. Full code. Minutes to complete discharge: 35 Discharge Summary Problems reviewed: Yes Reason For Visit: ABSCESS / CELLULITIS OF FOOT Current Active Problems Abscess (Acute) Cellulitis of foot (Acute) Diabetes (Acute) Condition: Improved - Instructions Diet, Activity, Other Instructions: A prescription has been sent to your pharmacy for clindamycin which is an antibiotic. Take this medication as prescribed. You have an appointment to see Dr. Chau at the [facility] on December 26 at 1:30pm. The Wound Center is located on the 5th floor of [facility]. Referrals: Arthur Chau MD [Staff Physician] - 12/27/19 1:30 pm (You will see Dr. Chau at the [facility] on the 5th floor. ) Disposition: HOME - Home Medications Comprehensive Discharge Medication List: Ambulatory Orders Atorvastatin Ca [Lipitor] 20 mg PO DAILY 12/22/19 Enalapril Maleate 2.5 mg PO DAILY 12/22/19 Insulin Detemir [Levemir Flextouch] 70 unit SQ HS 12/22/19 Insulin Lispro [Humalog] 0 unit SQ ASDIR 12/22/19 Metformin HCl [Glucophage] 500 mg PO BID 12/22/19 Sitagliptin Phosphate [Januvia] 50 mg PO DAILY 12/22/19 Clindamycin [Cleocin -] 300 mg PO TID #30 capsule 12/23/19 This patient is new to me today: Yes Date on this admission: 12/23/19 Emergency Visit: Yes ED Registration Date: 12/22/19 Care time: The patient presented to the Emergency Department on the above date and was hospitalized for further evaluation of their emergent condition. Critical Care patient: No - Discharge Referral Referred to [facility] No
[2019-12-23] MEDS ORDERED: ATORVASTATIN CA 20 MG TABLET (FP) PO ONE (22:00)
== END 2019-12-23 14:40 | disposition home or self-care (01) | DRG 603 ==
LOC: FER 18:47 → FM/S 20:16
PROVIDERS: ADMIT Internal Medicine; ATTEND Nurse Practitioner Acute Care
DX: L03.116 Cellulitis of left lower limb (principal); E11.9 Type 2 diabetes mellitus without complications; I10 Essential (primary) hypertension; E78.5 Hyperlipidemia, unspecified; Z79.4 Long term (current) use of insulin
CPT/HCPCS: 36415; 71046-TC-FY; 80048; 80053; 82962; 85025; 85027; 87040; 87070; 87077; 87186; 87205; 99285-25

== ENCOUNTER 2024-05-22 11:32 | Emergency (ER) | payer OTHER, BC ==
[2024-05-22 11:52] VITALS: BP 105/67; PULSE 77; RESP 18; TEMP 97.6; BMI 25.7
== END 2024-05-22 15:30 | disposition home or self-care (01) ==
LOC: JERFT 11:32
DX: M17.11 Unilateral primary osteoarthritis, right knee (principal); W18.39XA Other fall on same level, initial encounter
CPT/HCPCS: 73560-TC-RT-FY; 99283-25